=== PATIENT | male | born 1990 | race Caucasian/White ===

== ENCOUNTER → 2017-09-14 | Outpatient (CLI) | payer OTHER ==
--- NOTE | 2017-09-14 17:06 | ECHOCARDIOGRAM REPORT ---
*NOTICE TO RECEIVING CONSTITUTION PARTY AGENCY This information is strictly Confidential and protected under [place] law. [place] law prohibits you from making any further disclosure of this information unless further disclosure is expressly permitted by the written consent of the person to whom it pertains or is authorized by law. A general authorization for the release of medical or other information is not sufficient for this purpose. Hospital accepts no responsibility if the information is made available to any other person, INCLUDING THE PATIENT. Interpretation Summary * Name: BENSON HADDAD Study Date: 09/14/2017 01:19 PM BP: 117/70 mmHg * Patient Location: [facility] HR: 63 * : 1990 (M/d/yyyy) Gender: Male Height: 70 in * Age: 27 yrs Ethnicity: CA Weight: 163 lb * Ordering Physician: Alla Pierce * Referring Physician: Alla Pierce * Performed By: Kristy Magaña RCS * * Reason For Study: PALPITATIONS * BSA: 1.9 m2 * -- Conclusions -- * 1. Normal LV size. Normal LV wall thickness. * 2. Normal LV systolic function. LVEF 55-60%. No regional wall motion abnormalities. * 3. Normal RV size and function. * 4. Trace mitral regurgitation * 5. Normal estimated PA and RA pressures. * 6. No prior studies for comparison. Procedure Details * A complete two-dimensional transthoracic echocardiogram was performed (2D, M-mode, Doppler and color flow Doppler). Left Ventricle * The left ventricle is grossly normal size. * There is normal left ventricular wall thickness. * Ejection Fraction = 55-60%. * No regional wall motion abnormalities noted. Right Ventricle * The right ventricle is grossly normal size. * The right ventricular systolic function is normal as assessed by tricuspid annular plane systolic excursion (TAPSE) (normal >1.5 cm). Atria * The left atrial size is normal. * The right atrium is borderline dilated. Mitral Valve * The mitral valve is grossly normal. * There is no mitral valve stenosis. * There is trace mitral regurgitation. Tricuspid Valve * There is trace tricuspid regurgitation. Aortic Valve * The aortic valve opens well. * Cannot rule out bicuspid valve * No hemodynamically significant valvular aortic stenosis. * There is no significant aortic regurgitation. Pulmonic Valve * The pulmonary valve is inadequately visualized, but the Doppler data is adequate for interpretation. * Pulmonic stenosis is absent. * Trace pulmonic valvular regurgitation. Great Vessels * The aortic root and proximal ascending aorta are normal sized. Pericardium/Pleural * There is no pericardial effusion. Great Vessels * There is no evidence of pulmonary hypertension. The PA systolic pressure is less than 36 mmHg. * Normal inferior vena cava size and collapsability with sniff indicates a normal right atrial pressure of 3 mmHg MMode 2D Measurements and Calculations IVSd 1.0 cm IVSs 1.5 cm LVIDd 4.4 cm LVIDs 3.0 cm LVPWd 1.1 cm LVPWs 1.4 cm IVS/LVPW 0.92 FS 31.6 % EDV(Teich) 85.8 ml ESV(Teich) 34.5 ml EF(Teich) 59.8 % EDV(cubed) 82.9 ml ESV(cubed) 26.5 ml EF(cubed) 68.0 % % IVS thick 50.4 % % LVPW thick 23.3 % LV mass(C)d 157.2 grams LV mass(C)dI 82.1 grams/m\S\2 LV mass(C)s 145.9 grams LV mass(C)sI 76.3 grams/m\S\2 SV(Teich) 51.3 ml SI(Teich) 26.8 ml/m\S\2 SV(cubed) 56.4 ml SI(cubed) 29.5 ml/m\S\2 Ao root diam 3.0 cm Ao root area 6.9 cm\S\2 ACS 2.3 cm LA dimension 2.8 cm LA/Ao 0.95 LVOT diam 2.0 cm LVOT area 3.1 cm\S\2 LVAd ap4 42.3 cm\S\2 LVLd ap4 9.7 cm EDV(MOD-sp4) 151.9 ml EDV(sp4-el) 156.7 ml LVAs ap4 26.2 cm\S\2 LVLs ap4 8.0 cm ESV(MOD-sp4) 69.8 ml ESV(sp4-el) 72.8 ml EF(MOD-sp4) 54.1 % EF(sp4-el) 53.6 % LVAd ap2 39.8 cm\S\2 LVLd ap2 9.5 cm EDV(MOD-sp2) 135.8 ml EDV(sp2-el) 142.4 ml LVAs ap2 27.3 cm\S\2 LVLs ap2 8.7 cm ESV(MOD-sp2) 71.8 ml ESV(sp2-el) 73.0 ml EF(MOD-sp2) 47.2 % EF(sp2-el) 48.8 % LVLd %diff -2.41 % EDV(MOD-bp) 144.7 ml LVLs %diff 7.4 % ESV(MOD-bp) 71.9 ml EF(MOD-bp) 50.3 % SV(MOD-sp4) 82.1 ml SI(MOD-sp4) 42.9 ml/m\S\2 SV(MOD-sp2) 64.0 ml SI(MOD-sp2) 33.5 ml/m\S\2 SV(MOD-bp) 72.8 ml SI(MOD-bp) 38.0 ml/m\S\2 SV(sp4-el) 83.9 ml SI(sp4-el) 43.9 ml/m\S\2 SV(sp2-el) 69.4 ml SI(sp2-el) 36.3 ml/m\S\2 Doppler Measurements and Calculations MV E max tee 71.7 cm/sec MV A max tee 38.3 cm/sec MV E/A 1.9 MV P1/2t max tee 82.8 cm/sec MV P1/2t 85.0 msec MVA(P1/2t) 2.6 cm\S\2 MV dec slope 285.6 cm/sec\S\2 MV dec time 0.28 sec Ao V2 max 103.4 cm/sec Ao max PG 4.3 mmHg Ao max PG (full) 1.9 mmHg GINO(V,A) 2.3 cm\S\2 GINO(V,D) 2.3 cm\S\2 LV V1 max PG 2.4 mmHg LV V1 max 77.0 cm/sec PA V2 max 81.1 cm/sec PA max PG 2.6 mmHg PI max tee 160.5 cm/sec PI max PG 10.3 mmHg PI dec slope 188.6 cm/sec\S\2 PI P1/2t 249.2 msec TR max tee 212.7 cm/sec
== END | disposition home or self-care (01) ==
LOC: C.CPL 13:12
PROVIDERS: ATTEND Internal Medicine
DX: R00.2 Palpitations (principal)